=== PATIENT | female | born 1955 | race Caucasian/White ===

== ENCOUNTER 2022-05-25 09:00 | Outpatient (CLI) | payer MEDICARE, OTHER ==
--- NOTE | 2022-05-25 15:27 | XRAY Report ---
PROCEDURE: Toe(s) RT INDICATIONS: RIGHT PINKY TOE PAIN TECHNIQUE: 3 views of the fifth toe(s) acquired. COMPARISON: Prior radiographs dated 07/27/2013 FINDINGS: Bones: No fractures or dislocations. No suspicious bony lesions. Soft tissues: Soft tissue swelling of the fifth digit. IMPRESSION: Soft tissue swelling of fifth digit without acute fracture. Reviewed by: Jorden Thomas DO on 05/25/2022 2:25 PM JOSUÉ Approved by: Jorden Thomas DO on 05/25/2022 2:25 PM AKTIM Station ID: [id number]
== END 2022-05-25 23:59 | disposition home or self-care (01) ==
LOC: DI.S 09:00
PROVIDERS: ATTEND Physician Assistant Medical
DX: M79.674 Pain in right toe(s) (principal); M79.9 Soft tissue disorder, unspecified

== ENCOUNTER 2023-07-25 18:03 | Outpatient (CLI) | payer MEDICARE, OTHER ==
--- NOTE | 2023-07-28 14:51 | XRAY Report ---
PROCEDURE: Foot 3+V RT INDICATIONS: RT 5TH DIGIT PX AND SWELLING TECHNIQUE: 3 views of the foot were acquired. COMPARISON: Right fifth toe radiograph dated 05/25/2022. FINDINGS: Bones: There is fusion at fifth DIP joint. No acute fracture or dislocation. Osteoarthritic changes a re noted at fifth PIP joint with joint space narrowing and subchondral sclerosis. No gross bony erosi ve changes. Small plantar calcaneal enthesophyte is seen. No suspicious bony lesions. Soft tissues: Soft tissue swelling surrounding fifth PIP joint is seen. No abnormal soft tissue calci fications. IMPRESSION: No acute bony abnormality. 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 No bony erosive changes. Reviewed by: Kirby Cuellar MD on 07/28/2023 2:50 PM PDT Approved by: Kirby Cuellar MD on 07/28/2023 2:50 PM PDT Station ID: [id number]
== END 2023-07-25 18:04 | disposition home or self-care (01) ==
LOC: DI 18:03
PROVIDERS: ATTEND Family Medicine
DX: M19.041 Primary osteoarthritis, right hand (principal); R22.41 Localized swelling, mass and lump, right lower limb